=== PATIENT | female | born 1950 | race Caucasian/White ===

== ENCOUNTER 2021-07-29 11:16 | Day surgery (SDC) | payer MEDICARE ==
[~2021-07-29] VITALS: Ht 162.6 cm; Wt 107.4 kg
[~2021-07-29 11:16] MED LIST: CALC600T2 PO; CHOL10006 PO; HYDR-3964 PO; HYDR12.55 PO; LORA10TA65 PO; LOSA50TA3 PO; METO-395 PO; MULT-227 PO; POTA-192 PO; ZINC220C7 PO
[2021-07-29 11:40] VITALS: BP 139/75
[2021-07-29] MEDS ORDERED: normal saline 1000ml 1,000 ML IV PRN (11:40)
[2021-07-29] MEDS ORDERED: IBUP-1984 PO (11:46)
[2021-07-29] MEDS ORDERED: heparin sodium, porcine/PF 100unit/ml 5ML syringe ONE (12:07)
[2021-07-29] MEDS ORDERED: LIDOcaine 1%/PF 5ML 10 MG/ML VIAL ONE (12:08)
[2021-07-29] MEDS ORDERED: midazolam 1 mg/ML 2ml injection ONE ×2 (12:08→12:47)
[2021-07-29] MEDS ORDERED: fentaNYL/PF 50MCG/1 ML 2ML syringe ONE ×2 (12:08→12:47)
--- NOTE | 2021-07-29 12:15 | NUR ---
Pt IR for port placement, report to Breanne CARO.
[2021-07-29 13:04] VITALS: BP 125/64
--- NOTE | 2021-07-29 13:05 | NUR ---
Pt returned fro IF post port placement. at bedside. No c/o pain. Procedure site stable, no bleeding noted, skin glue intact. Pt declines food. Pitcher of water given to pt.
[2021-07-29 13:15] VITALS: BP 120/57
[2021-07-29 13:30] VITALS: BP 121/55
[2021-07-29 13:45] VITALS: BP 109/57
[2021-07-29 14:00] VITALS: BP 131/76
--- NOTE | 2021-07-29 14:10 | NUR ---
Written and verbal DC instructions given to pt and , questions answered, verbalize understanding. PIV DC cath intact, pt able to dress self, steady on feet. VSS.
--- NOTE | 2021-07-29 14:20 | NUR ---
DC to home with with all belongings. Transferred to private car via WC, pt able to transfer self to car.
== END 2021-07-29 14:20 | disposition home or self-care (01) ==
LOC: SSTAY O 11:16
PROVIDERS: ATTEND Radiology Vascular & Interventional Radiology
DX: C54.1 Malignant neoplasm of endometrium (principal); I10 Essential (primary) hypertension; Z90.710 Acquired absence of both cervix and uterus; Z90.722 Acquired absence of ovaries, bilateral; Z90.49 Acquired absence of other specified parts of digestive tract; Z72.89 Other problems related to lifestyle; Z80.3 Family history of malignant neoplasm of breast; Z80.0 Family history of malignant neoplasm of digestive organs
CPT/HCPCS: 36561; 76937; 77001; 99152; C1769; C1788; C1894; J1642; J2250; J3010; J3490; 99153